=== PATIENT | female | born 1980 | race Caucasian/White ===

== ENCOUNTER 2018-08-16 21:10 | Emergency (ER) | payer OTHER, MEDICAID, SELFPAY ==
[2018-08-16 21:28] VITALS: BP 119/88; PULSE 83; RESP 16; TEMP 36.5
[2018-08-16 21:32] LABS: Bilirubin Negative (Negative); Blood Negative (Negative); Clarity Clear; Glucose Negative (Negative); Ketones Negative (Negative); Leukocyte Esterase Negative (Negative); Nitrite Negative (Negative); Specific Gravity >= 1.030 (1.005-1.025); Urobilinogen 0.2 EU/dL (Up TO 0.2); pH 5.5 (5-8)
--- NOTE | 2018-08-16 21:41 | ED.GENADUL_ITS ---
Discharge Plan Disposition Patient Disposition: HOME Condition: Improving Discharge Details Chief Complaint: Urinary Clinical Impression: Candidal vulvovaginitis Primary Care Provider: Tello Cruz ED Provider: Mitul Hernandez Home Meds and New Rx's Prescriptions: New clotrimazole 1 % cream 1 appful VG QHS 7 Days Qty: 45 RF: 0 Discharge Instructions Additional Instructions: You are given a single dose of oral fluconazole for yeast infection. If you have persistent symptoms, may use the provided prescription for nightly vaginal application for 7 days. Return if you develop a fever, worsening discomfort, or any other concerns Medical Decision Making 37-year-old female presents from home with days of vaginal itching and burning with urination. Began after using an unusual soap at a hotel, she tried leftover metronidazole cream with no improvement. No evidence of acute UTI. On exam she has evidence of vulval vaginitis se condary to Bettie. Will treat with single oral fluconazole and patient to be given a prescription for clotrimazole cream for 7 days to be used if needed for persistent symptoms. She is stable for outpatient Lab Data Lab results reviewed: Yes I reviewed the patient's lab results. Laboratory Results - last 24 hr 08/16/18 21:27 Urine Color Yellow Urine Clarity Clear Urine pH 5.5 Ur Specific Drury >= 1.030 H Urine Protein Negative Urine Ketones Negative Urine Blood Negative Urine Nitrite Negative Urine Bilirubin Negative Urine Urobilinogen 0.2 Ur Leukocyte Esterase Negative Urine Glucose Negative HPI General Mode of arrival: ambulatory . Date/Time Provider Initiated Documentation: 08/16/18 21:16 . Limitations to Documentation: no limitations . Information obtained by: patient . History of Present Illness 37 year old F presents to the emergency department with the chief complaint of Vaginal itching and irritation with urination of the labia majora, described as moderate, Quality is described as burning, and is localized to the genitals. Patient reports no radiation. Patient started experiencing this day(s) and it has been constant. No relieving factors improve symptom(s), Other factors that worsen symptoms (Urination) . Patient notes denies diaphoresis, fever/chills, loss of appetite and nausea/vomiting. Patient did receive the following treatments prior to arrival, other (Use metronidazole cream with no change) Related Data Home Medications Medication Instructions Recorded Confirmed clotrimazole 1 appful VG QHS 7 Days #45 gm 08/16/18 Previous Rx's Medication Instructions Recorded clotrimazole 1 appful VG QHS 7 Days #45 gm 08/16/18 General Stated Complaint: Urinary SINTIA: 3 Review of Systems Review of Systems Patient has a dry cough that she is had with a smoking cigarettes. No other recent illness. No sores or lesions. No new sexual contacts. 6 systems reviewed and otherwise no active [facility] Social History Smoking/Tobacco Use Status: Current every day Tobacco Type: cigarettes Smoking cigarettes per day: 10 Substance use type: does not use Exam Narrative Exam Narrative: GEN: awake, alert, oriented 3. Pleasant, well groomed, interactive. HEAD: Normocephalic, atraumatic ENT: Mucous membranes moist, oropharynx unremarkable, External ear exam unremarkable EYES: PERRL, EOMI NECK: Full ROM, no DANO, no menigismus CHEST/RESP: Nontender, clear to auscultation bilateral, no wheeze/rhonchi/rales CARDIOVASCULAR: RRR, no murmur, rub el. 2+ Rad pulse bilateral ABDOMEN: Soft, nontender, no mass. +Bowel sounds. Pelvic exam with beefy red vaginal mucosa of the labia majora EXT: Full ROM, no edema, no rash Neuro: Grossly normal neurologic exam, conversant, interactive. Psych: Speech fluent, thoughts congruent, affect normal Course Vital Signs Temperature 36.5 C 08/16/18 21:28 Pulse 83 08/16/18 21:28 Respiratory Rate 16 08/16/18 21:28 Blood Pressure 119/88 08/16/18 21:28 Temperature 36.5 C 08/16/18 21:28 Temperature Source Temporal Artery Scan 08/16/18 21:28 Pulse 83 08/16/18 21:28 Respiratory Rate 16 08/16/18 21:28 Respiratory Effort Non-Labored 08/16/18 21:31 Blood Pressure 119/88 08/16/18 21:28 Blood Pressure Position Sitting 08/16/18 21:28 Oxygen Delivery Method Room Air 08/16/18 21:28 Oxygen Flow Rate 0 08/16/18 21:28 Pain Level 5 08/16/18 21:28 Lab/Test Results Lab/Test Results: Laboratory Tests Range/Units 06/14/19 21:27 Urine Color (Yellow) Yellow Urine Clarity Clear Urine pH (5-8) 5.5 Ur Specific Drury (1.005-1.025) >= 1.030 H Urine Protein (Negative) mg/dL Negative Urine Ketones (Negative) mg/dL Negative Urine Blood (Negative) Negative Urine Nitrite (Negative) Negative Urine Bilirubin (Negative) Negative Urine Urobilinogen (Up TO 0.2) EU/dL 0.2 Ur Leukocyte Esterase (Negative) Negative Urine Glucose (Negative) mg/dL Negative
[2018-08-16] MEDS: Fluconazole 150 MG TAB PO (21:56)
== END 2018-08-16 21:57 | disposition home or self-care (01) ==
PROVIDERS: Emergency Provider Emergency Medicine; PCP Nurse Practitioner Family
DX: B37.3 Candidiasis of vulva and vagina (principal)
CPT/HCPCS: 99283; 81003